=== PATIENT | male | born 1985 | race Caucasian/White ===

== ENCOUNTER 2025-04-08 02:56 | Emergency (ER) | payer OTHER, SELFPAY ==
[2025-04-08] VITALS (11 sets, daily range): BP systolic 127–150; BP diastolic 87–113; PULSE 92–125; RESP 11–18; TEMP 36.3–36.6; O2SAT 95–100
--- NOTE | 2025-04-08 03:00 | ED.VIS.CHEST ---
HPI History of Present Illness Chief Complaint: Chest Pain Informant: patient Onset/Context/Timing Onset: Weeks (1) Activity at onset: gradual Timing: Continuous Quality: Positive for Pressure Location: Substernal, Right Parasternal, Left Parasternal, Right Chest and Left Chest Worsened By: Nothing Relieved By: Nothing Associated Symptoms: Positive for Diaphoresis, Cough, Lightheadedness and Palpitations; Negative for Nausea, Vomiting, Dyspnea, Fever or Acid Reflux Narrative Narrative: Patient presents with chest pressure that has been constant for the past week. Patient states it feels like a pressure across his lower chest. Patient denies any radiation of the pain. Patient states nothing makes it better and nothing makes it worse. Patient states that pressure woke him up early this morning. Patient states he checked his blood pressure at home and it was 135/100 and his heart rate was 135. Patient states he was feeling clammy and rechecked his blood pressure and it was 90/75. Patient admits to some diaphoresis at that time. Patient also admits to some lightheadedness. Patient admits to some palpitations. Patient also admits to a mild cough. Patient states his has had a cough as well. CVD Risk Factors: Positive for Hypertension; Negative for Diabetes, Hypercholesterolemia, Family History 1' </=55 or Smoking PE Risk Factors: Negative for Recent Travel/Surgery, Recent Immobilization, Prior DVT or PE, Cancer or OCP + Smoking + >/=35 PFSH PFSH Medical History Hypertension Home Medications ?Medication ?Instructions ?Recorded ?Last Taken ?Type losartan 50 mg tablet 50 mg PO DAILY 04/08/25 Unknown History Allergy/AdvReac Type Severity Reaction Status Date / Time No Known Allergies Allergy Verified 04/08/25 02:59 Surgical History no surgical history no surgical history Social History (Updated 04/08/25 @ 03:[address] Mustapha Wolf, ) Smoking Status: Never smoker substance use type: marijuana ROS ROS ED Constitutional Constitutional ED: Denies chills or fever(s) Eyes Eyes: Denies blurry vision or change in vision ENT ENT ED: Denies rhinorrhea or sore throat Cardiovascular Cardiovascular: Reports chest pain; Denies palpitations Respiratory/Chest Respiratory/Chest: Reports cough; Denies dyspnea Gastrointestinal Gastrointestinal: Denies nausea or vomiting Genitourinary Genitourinary ED: Denies dysuria or hematuria Musculoskeletal Musculoskeletal: Reports back pain and neck pain Integumentary Denies abscess or rash Neurologic Neurologic: Denies headache(s) or weakness Allergic/Immunologic Allergic/Immunologic ED: Denies mouth swelling or urticaria EXAM Physical Exam Const Vital Signs: 04/08/25 02:59 04/08/25 02:59 04/08/25 03:06 Temperature 97.4 F L Temperature Source Oral Pulse Rate 115 H 124 H Respiratory Rate 18 11 L Respiratory Effort Normal Non-Labored Respiratory Pattern Normal Blood Pressure 146/113 H Blood Pressure Mean 124 Pulse Ox 100 100 Oxygen Delivery Method Room Air Oxygen Flow Rate (L/min) 04/08/25 03:15 04/08/25 03:23 04/08/25 03:30 Temperature Temperature Source Pulse Rate 108 H 125 H Respiratory Rate 17 14 Respiratory Effort Respiratory Pattern Blood Pressure 147/108 H 150/113 H Blood Pressure Mean 120 125 Pulse Ox 97 96 Oxygen Delivery Method Room Air Oxygen Flow Rate (L/min) 96 04/08/25 03:45 04/08/25 04:00 04/08/25 04:15 Temperature Temperature Source Pulse Rate 116 H 106 H 100 Respiratory Rate 16 15 15 Respiratory Effort Respiratory Pattern Blood Pressure 143/108 H 140/101 H 141/99 H Blood Pressure Mean 120 114 112 Pulse Ox 97 95 95 Oxygen Delivery Method Oxygen Flow Rate (L/min) 04/08/25 04:30 04/08/25 04:45 04/08/25 05:00 Temperature Temperature Source Pulse Rate 97 92 Respiratory Rate 15 14 Respiratory Effort Respiratory Pattern Blood Pressure 131/94 H 136/93 H 133/93 H Blood Pressure Mean 105 105 105 Pulse Ox 96 97 Oxygen Delivery Method Room Air Oxygen Flow Rate (L/min) Positive well nourished and well developed Constitutional Narrative: BMI is 30.1. General Appearance ED: well developed and NAD HEENT Reports moist mucous membranes Neck supple and no JVD Resp normal respiratory effort and clear to auscultation bilaterally Cardio regular rhythm Rate: tachycardic GI soft to palpation, non-tender and non-distended Extremity normal to inspection General Extremety ED: Negative for edema or tenderness General Extremity: Negative for edema Neuro oriented x3, CN's II-XII intact bilaterally and no sensory deficits noted Sensorium / Orientation: awake and alert Motor Exam: strength 5/5 throughout Psych mental status grossly normal Heart Score History: Slightly/Non-Suspicious ECG: Normal Age: </= 45 years Risk Factors: 1 or 2 Risk Factors Troponin: </= Normal Limit Score: 1 MDM MDM MDM Narrative Medical decision making narrative: Differential diagnosis includes but is not limited to cardiac dysrhythmia, cardiac ischemia, pneumonia, bronchitis, pulmonary embolism, gastroesophageal reflux disease, pancreatitis, gastritis, and anxiety. EKG will be obtained to assess for cardiac dysrhythmia and cardiac ischemia. Chest x-ray will be obtained to assess for pneumonia or bronchitis. CBC will be obtained to assess for leukocytosis and anemia. Comprehensive metabolic profile will be obtained to assess for electrolyte abnormality, hepatic function, and renal function. Lipase will be obtained to assess for pancreatitis. High-sensitivity troponin will be obtained to assess for cardiac ischemia. D-dimer will be obtained to assess for pulmonary embolism. History & Record Review Additional record(s) reviewed:: No prior records Lab Data Attestation: I reviewed the patient's lab results. Lab results narrative: CBC was reviewed and was within normal limits. Basic metabolic profile was reviewed and was essentially within normal limits. Lipase was reviewed and was normal at 27. D-dimer was reviewed and was normal at 0.27. Initial high-sensitivity troponin was reviewed and was minimally elevated at 23. 2-hour repeat high-sensitivity troponin was reviewed and was normal at 19. Labs: Laboratory Results - last 24 hr 04/08/25 04/08/25 03:00 04:56 WBC 6.6 RBC 5.25 Hgb 16.0 Hct 47.5 MCV 90.5 MCH 30.5 MCHC 33.7 RDW Std Deviation 43.4 RDW Coeff of [place] 13.1 Plt Count 221 MPV 8.6 Immature Gran % (Auto) 0.500 Neut % (Auto) 66.2 Lymph % (Auto) 19.8 Petroleum % (Auto) 11.9 H Eos % (Auto) 1.1 Baso % (Auto) 0.5 Absolute Neuts (auto) 4.3 Absolute Lymphs (auto) 1.30 Nucleated RBC % 0 D-Dimer Quant (PE/DVT) 0.27 Sodium 136 Potassium 3.4 Chloride 101 Carbon Dioxide 24.3 Anion Gap 11 BUN 14 Creatinine 1.20 Estim Creat Clear Calc 102.47 Est GFR (MDRD) Non-Af 79 BUN/Creatinine Ratio 11.6 Glucose 125 H Calcium 9.1 Troponin T High Sens 23 H Troponin T Hi Sens 2 Hr 19 Lipase 27 Radiography Chest X-Ray - ED: 1 View, Read by ED Physician, Read by Radiologist and No Acute Disease Diagnostic Testing: Clinical Impression(s) from Imaging Studies Chest X-Ray 04/08/25 03:38 IMPRESSION: No acute cardiopulmonary process Reading Location: [place] [id number] Portable 1 view chest x-ray was obtained. On my independent interpretation, lung hearn are clear. There is normal cardiac silhouette. Bony thorax is normal. There is no acute process noted. Radiologist also interpreted the x-ray and agrees. EKG Initial EKG: Attestation: I personally reviewed and interpreted this EKG as follows: Interpretation: No Acute Injury Pattern and Sinus Tachycardia (111) Comments: EKG was obtained. On my independent interpretation, it showed a sinus tachycardia with a rate of 111. SD interval, QRS interval, and QTc intervals were all normal. [place] was normal. There are no acute ST or T wave changes. Prior EKG tracings: not available for review Prior: No Prior Treatment and Re-Evaluation :: Patient was given aspirin. Patient was given a GI cocktail. Patient was advised of his findings. Patient has a HEART score of 1. Patient was advised that this is a low risk for acute cardiac event. Patient was instructed to follow-up with his primary care physician in 5 to 7 days. Patient was instructed to return if worse in any way. Patient understood and was agreeable with the plan. All questions were answered. Discharge Plan Triage Chief Complaint: Chest Pain ED Provider: Mustapha Wolf Dx/Rx/DC Orders Clinical Impression: Chest pain, Elevated blood pressure reading Instructions: ED Chest Pain, Uncertain Cause Prescriptions: No Action losartan 50 mg tablet 50 mg PO DAILY Primary Care Provider: Adelia Mata Referrals: Care Physician,No Primary [Non-Staff, Medical] Adelia Mata NP-C [Primary Care Provider, Medical] - 5-7 Days Print Language: Kittitian Disposition Disposition: Home, Self Care
--- NOTE | 2025-04-08 03:17 | EKG12_ITS ---
Test Reason : CHEST PRESSURE Blood Pressure : */* mmHG Vent. Rate : 111 BPM Atrial Rate : 111 BPM P-R Int : 186 ms QRS Dur : 102 ms QT Int : 328 ms P-R-T Axes : 64 42 23 degrees QTcB Int : 446 ms Sinus tachycardia Otherwise normal ECG Confirmed by MAURILIO SHAH ([id number]), web content editor KODI LYLE ([id number]) on 04/10/2025 6:38:03 AM Referred By: GAY Confirmed By: MAURILIO SHAH
[2025-04-08 03:27] LABS: Hematocrit 47.5 % (40-54); Hemoglobin 16.0 g/dL (13.0-16.5); Immature Granulocytes Count 0.030 X10^3/uL (0.0-0.0); Mean Corp Hgb Conc 33.7 g/dL (32-36); Mean Corpuscular Volume 90.5 fL (80-94); Mean Platelet Vol. 8.6 fl (6.2-12.0); NRBC Flagged by Analyzer 0 % (0-5); Platelet Count 221 K/mm3 (150-450); RBC Distribution Width CV 13.1 % (11.6-14.6); RBC Distribution Width SD 43.4 fl (35.1-43.9); Red Blood Count 5.25 M/mm3 (4.6-6.2); White Blood Count 6.6 K/mm3 (4.4-11.0)
[2025-04-08] MEDS: 0.9% Normal Saline (1000mL) 1,000 ML 999 ML IV (03:27)
[2025-04-08] MEDS: Lidocaine 2% Viscous15 ML UDC 15 ML PO (03:28)
--- NOTE | 2025-04-08 03:38 | RAD_ITS ---
PROCEDURE: CHEST 1 VIEW (PORTABLE) 04/08/2025 REASON FOR EXAM: CHEST PAIN TECHNIQUE: Frontal view of the chest. COMPARISON: None FINDINGS: The lungs are expanded. There is no demonstrated parenchymal abnormality. There is no demonstrated pleural abnormality. Normal heart and pericardium. Normal visualized aortic arch and descending thoracic aorta. No acute osseous abnormalities . There is no demonstrated abnormality of the visualized soft tissue structures of the upper abdomen. RAD/Chest 1 View (Portable) IMPRESSION: No acute cardiopulmonary process [facility]
[2025-04-08 03:42] LABS: D-Dimer Quantitative (DVT/PE) 0.27 FEU/ug/m (0.27-0.49)
[2025-04-08 03:44] LABS: Anion Gap 11 (5-15); BUN 14 mg/dL (4-19); BUN/Creat Ratio 11.6 RATIO (10-20); Calcium,Total 9.1 mg/dL (7.6-11.0); Carbon Dioxide 24.3 mmol/L (21.0-32.0); Chloride 101 mmol/L (98-108); Estimated Creatinine Clearance 102.47 ml/min (50-250); Glucose 125 mg/dL (70-99); Lipase 27 U/L (13-75); Potassium 3.4 mmol/L (3.3-5.1); Troponin T High Sensitivity 23 ng/L (<=22)
[2025-04-08 05:25] LABS: Troponin T High Sens 2 HR 19 ng/L (<=22)
== END 2025-04-08 05:44 | disposition home or self-care (01) ==
PROVIDERS: Emergency Provider Emergency Medicine; PCP Nurse Practitioner Family; Visit Provider Emergency Medicine
DX: R07.9 Chest pain, unspecified (principal); R00.2 Palpitations; I10 Essential (primary) hypertension; M54.2 Cervicalgia; Z79.899 Other long term (current) drug therapy
CPT/HCPCS: 71045; 80048; 83690; 84484; 85025; 85379; 93005; 96360; 99285; A4216

== ENCOUNTER 2025-04-13 09:31 | Emergency (ER) | payer OTHER, SELFPAY ==
[2025-04-13 09:32] VITALS: BP 137/100; PULSE 96; RESP 18; TEMP 36.5; O2SAT 99; BMI 29.9
--- NOTE | 2025-04-13 09:58 | CT_ITS ---
PROCEDURE: CT/CTA Chst, Abd, Pel W and/or WO
--- NOTE | 2025-04-13 09:59 | EKG12_ITS ---
Test Reason : CP
--- NOTE | 2025-04-13 10:21 | ED.VIS.CHEST ---
HPI History of Present Illness Chief Complaint: Chest Pain Narrative Narrative: Patient is a 39-year-old male presenting to the emergency department for intermittent chest pain and reports of subjective left arm numbness. Patient was just seen here 5 days ago for chest pain but he states that this pain is different. He has a past medical history of hypertension for which he takes losartan daily. No family history of sudden cardiac . States that this morning he started having intermittent chest pain in different portions of his chest from his right side to his left side. Denies any pain radiating to his back or jaw. States that the pain will sometimes go into his left shoulder and left elbow. He denies any shortness of breath. Denies any abdominal pain or vomiting. Denies any numbness or weakness in his legs. Prior Similar Symptoms: No Recent Illness/Hospitalization: No CVD Risk Factors: Positive for Hypertension [facility] Medical History Hypertension Home Medications ?Medication ?Instructions ?Recorded ?Last Taken ?Type losartan 50 mg tablet 50 mg PO DAILY 04/08/25 Unknown History doxycycline hyclate 100 mg capsule 100 mg PO BID 5 days #10 caps 04/13/25 Unknown Rx Allergy/AdvReac Type Severity Reaction Status Date / Time No Known Allergies Allergy Verified 04/13/25 09:35 Social History Smoking Status: Never smoker substance use type: marijuana ROS ROS ED ROS Narrative see HPI EXAM Physical Exam Narrative Exam Narrative: Vital signs: Reviewed General: Alert and orientedx3. No acute distress HEENT: Head is normocephalic and atraumatic, sinuses nontender, pupils equal round and reactive. Nares are patent. Oropharynx and throat exams normal. Neck: Supple without lymphadenopathy nontender Cardiovascular: Regular rate and rhythm, no murmurs. No rubs or gallops. Normal S1 and S2. 2+ and symmetric radial and DP/PT pulses in all extremities. Respiratory: Clear to auscultation bilaterally. No wheezes, rales, rhonchi Abdominal: Soft and nontender. Normal bowel sounds. No guarding or rebound. Nonsurgical abdomen. No pulsatile abdominal mass or abdominal bruit. Extremities: No tenderness. No bruising. Normal range of motion. Normal sensation. Skin: No rash or redness. Neurological: Cranial nerves II through XII are grossly intact. Normal strength and sensation. Normal cerebellar function The rest of the physical exam is unremarkable Const Vital Signs: 04/13/25 09:32 04/13/25 11:10 04/13/25 12:00 Temperature 97.7 F L Temperature Source Oral Pulse Rate 96 77 73 Respiratory Rate 18 15 25 H Blood Pressure 137/100 H 130/91 H 132/97 H Blood Pressure Mean 112 104 108 Pulse Ox 99 96 98 Oxygen Delivery Method Room Air Room Air Room Air 04/13/25 13:00 04/13/25 13:57 Temperature 98.2 F Temperature Source Pulse Rate 75 85 Respiratory Rate 21 H 18 Blood Pressure 130/87 H 126/92 H Blood Pressure Mean 101 103 Pulse Ox 97 99 Oxygen Delivery Method Room Air Neuro oriented x3, CN's II-XII intact bilaterally and no sensory deficits noted Sensorium / Orientation: awake and alert Sensory Exam: No sensory level loss detected Motor Exam: strength 5/5 throughout; Negative for strength abnormal NIHSS NIHSS Initial: 1a Level of Consciousness: 0 1b LOC Questions (Score 2 if aphasic/stupor): 0 1c LOC Commands (Only score 1st attempt): 0 2 Best Gaze (If aphasic, use reflexive mvmts.): 0 3 Visual: 0 4 Facial Palsy: 0 5 Motor Arm Right (UN = amputation/fusion): 0 5 Motor Arm Left: 0 6 Motor Leg Right: 0 6 Motor Leg Left: 0 7 Limb ataxia (Only + if out of proportion): 0 8 Sensory (Aphasia/stupor=0 or 1, coma=2): 0 9 Best Language: 0 10 Dysarthria (mute, coma=2, intubated=UN): 0 11 Extinction and Inattention (only scored if +): 0 Total Score: 0 MDM MDM MDM Narrative Medical decision making narrative: Patient is a 39-year-old male presenting to the emergency department for intermittent chest pain that changes position as well as left arm tingling. Patient was seen and examined. Vitals are stable. He is mildly hypertensive on arrival at 137/100. Resting in bed comfortably no acute distress. Differential includes but is not limited to: ACS, dissection, pneumonia, electrolyte imbalance, stroke Patient states that is left arm feels weaker and has tingling like it's trying to be numb. On PE, he has 5/5 strength and equal sensation throughout. He has no strokelike symptoms on exam. NIH of 0. I do not think this is a stroke in nature. Given is not endorsement of chest pain and subjective numbness and weakness on the left arm I will obtain a CT of the chest to rule out aortic dissection. EKG shows normal sinus rhythm with no ischemic changes. No ST elevation or depression. No abnormal T wave inversions. No dysrhythmia. CBC with no leukocytosis and a normal hemoglobin. CMP with no significant abnormalities. Troponins are 20 and reflex is 19. Comparable to troponins done 5 days ago. Do not think it is necessary to obtain a third 1. Lipase within normal limits. CTA of the chest abdomen pelvis shows no acute aortic syndrome. Aortic dimensions above. No evidence of acute or chronic pulmonary embolus. Normal appearance of the heart. No coronary artery atherosclerosis at this time. Patchy areas of ground-glass opacity and small airways disease in the upper lobes, right middle lobe and left lower lobe. Acinar opacities can represent mucous, pus or fluid. Infectious etiologies include atypical organisms like mycobacteria such as MARION/MAC and fungal infection like coccidioidomycosis. Discussed findings with patient and at bedside. Patient is not immunocompromised and has no risk factors for fungal infections. Likely an atypical pneumonia. Will treat with doxycycline. First dose given here prescription sent to pharmacy and patient instructed how to take this. at bedside is asking for a GI referral for his recent weight loss and concern for her acid reflux/GERD which was not his main complaint today. They were given a referral. BP has improved with no intervention to 126/92. Patient discharged from the Emergency Department. I do not feel that the patient's evaluation reveals any acute reason for admission at this time. I instructed them to either follow-up with their primary care physician or promptly return to the Emergency Department for reevaluation should symptoms worsen or new symptoms develop. I explained what symptoms would indicate the need to return to the emergency department. Shared decision making was used. The patient voiced understanding of the treatment plan and is agreeable with it. Clinical impression Chest pain Pneumonia History & Record Review Discussion w/independent historian: Patient and Significant other Additional record(s) reviewed:: Prior ED visit and Prior labs Lab Data Attestation: I reviewed the patient's lab results. Labs: Laboratory Results - last 24 hr 04/13/25 04/13/25 10:15 12:30 WBC 7.3 RBC 4.81 Hgb 14.5 Hct 43.3 MCV 90.0 MCH 30.1 MCHC 33.5 RDW Std Deviation 43.2 RDW Coeff of [place] 13.0 Plt Count 234 MPV 8.7 Immature Gran % (Auto) 0.300 Neut % (Auto) 81.5 H Lymph % (Auto) 8.5 L [place] % (Auto) 6.9 Eos % (Auto) 2.3 Baso % (Auto) 0.5 Absolute Neuts (auto) 5.9 Absolute Lymphs (auto) 0.62 L Nucleated RBC % 0 Sodium 136 Potassium 4.4 Chloride 99 Carbon Dioxide 27.1 Anion Gap 9 BUN 12 Creatinine 1.18 Estim Creat Clear Calc 103.95 Est GFR (MDRD) Non-Af 81 BUN/Creatinine Ratio 9.7 L Glucose 103 H Calcium 9.2 Total Bilirubin 0.52 AST 20 ALT 17 Alkaline Phosphatase 78 Troponin T High Sens 20 D Troponin T Hi Sens 2 Hr 19 Total Protein 7.5 Albumin 4.2 Globulin 3.3 Albumin/Globulin Ratio 1.3 Lipase 21 Radiography Diagnostic Testing: Clinical Impression(s) from Imaging Studies Chest/Abdomen/Pelvis CTA 04/13/25 09:58 IMPRESSION: 1. No acute aortic syndrome. Aortic dimensions above. 2. No evidence of acute or chronic pulmonary embolus. 3. Normal appearance of the heart. No coronary artery atherosclerosis at this time. 4. Patchy areas of ground-glass opacity and small airways disease in the upper lobes, right middle lobe and left lower lobe. Acinar opacities can represent mucous, pus or fluid. Infectious etiologies include atypical organisms like mycobacteria such as MARION/MAC and fungal infection like coccidioidomycosis. 5. Diffuse fatty infiltration of the liver. 6. No acute abnormality of the pelvis. 7. Small umbilical hernia containing fat. Reading Location: [id number] Discharge Plan Triage Chief Complaint: Chest Pain ED Provider: Angella Gauthier Dx/Rx/DC Orders Clinical Impression: Chest pain, Pneumonia Instructions: Treating Pneumonia, ED Chest Pain, Uncertain Cause Prescriptions: New doxycycline hyclate 100 mg capsule 100 mg PO BID 5 Days Qty: 10 0RF No Action losartan 50 mg tablet 50 mg PO DAILY Primary Care Provider: Adelia Mata Referrals: Vinnie Wesley DO [Med Staff - Active Staff, Gastroenterology] - As Needed Adelia Mata, BUILDING MAINTENANCE TECHNICIAN-C [Primary Care Provider, Medical] - As soon as possible Activity Restrictions/Additional Instructions: Take antibiotic twice a day for 5 days. Your evaluation in the Emergency Department did not reveal any acute reason for admission. However, I want to emphasize that you may be early in the course of a disease process or illness even if it is not present. For this reason you should follow-up within 24 hours for reevaluation with either your primary care physician or if necessary back here in the Emergency Department. You should return to the Emergency Department immediately if your symptoms worsen or new symptoms develop. Print Language: Moroccan Disposition Disposition: Home, Self Care Discharge Date/Time: 04/13/25 13:59
[2025-04-13 10:25] LABS: Hematocrit 43.3 % (40-54); Hemoglobin 14.5 g/dL (13.0-16.5); Immature Granulocytes Count 0.020 X10^3/uL (0.0-0.0); Mean Corp Hgb Conc 33.5 g/dL (32-36); Mean Corpuscular Volume 90.0 fL (80-94); Mean Platelet Vol. 8.7 fl (6.2-12.0); NRBC Flagged by Analyzer 0 % (0-5); Platelet Count 234 K/mm3 (150-450); RBC Distribution Width CV 13.0 % (11.6-14.6); RBC Distribution Width SD 43.2 fl (35.1-43.9); Red Blood Count 4.81 M/mm3 (4.6-6.2); White Blood Count 7.3 K/mm3 (4.4-11.0)
[2025-04-13 11:08] LABS: AST(SGOT) 20 U/L (<=37); Alanine Aminotransfer ALT/SGPT 17 U/L (<=46); Albumin, Serum 4.2 g/dL (3.5-5.0); Alkaline Phosphatase 78 U/L (40-129); Anion Gap 9 (5-15); BUN 12 mg/dL (4-19); BUN/Creat Ratio 9.7 RATIO (10-20); Calcium,Total 9.2 mg/dL (7.6-11.0); Carbon Dioxide 27.1 mmol/L (21.0-32.0); Chloride 99 mmol/L (98-108); Estimated Creatinine Clearance 103.95 ml/min (50-250); Globulin 3.3 g/dL (2.2-4.2); Glucose 103 mg/dL (70-99); Lipase 21 U/L (13-75); Potassium 4.4 mmol/L (3.3-5.1); Troponin T High Sensitivity 20 ng/L (<=22)
[2025-04-13 11:10] VITALS: BP 130/91; PULSE 77; RESP 15; O2SAT 96
[2025-04-13 12:00] VITALS: BP 132/97; PULSE 73; RESP 25; O2SAT 98
[2025-04-13 13:00] VITALS: BP 130/87; PULSE 75; RESP 21; O2SAT 97
[2025-04-13 13:14] LABS: Troponin T High Sens 2 HR 19 ng/L (<=22)
[2025-04-13 13:57] VITALS: BP 126/92; PULSE 85; RESP 18; TEMP 36.8; O2SAT 99
== END 2025-04-13 13:59 | disposition home or self-care (01) ==
PROVIDERS: Emergency Provider Student in an Organized Health Care Education/Training Program; PCP Nurse Practitioner Family; Visit Provider Student in an Organized Health Care Education/Training Program
DX: R07.9 Chest pain, unspecified (principal); J18.9 Pneumonia, unspecified organism; I10 Essential (primary) hypertension; R20.0 Anesthesia of skin; M25.512 Pain in left shoulder; M25.522 Pain in left elbow; Z79.899 Other long term (current) drug therapy
CPT/HCPCS: 71275; 74174; 80053; 83690; 84484; 85025; 93005; 99284; Q9967; A4216